=== PATIENT | female | born 1990 | race African-American/Black ===

== ENCOUNTER 2017-09-09 08:26 | Emergency (ER) | payer BC, MEDICAID, OTHER ==
[~2017-09-09] VITALS: Ht 160 cm; Wt 55.0 kg
[~2017-09-09 08:26] MED LIST: METR-1 PO
--- NOTE | 2017-09-09 08:51 | PD ---
HPI Chief Complaint: ENT Complaint Time Seen by Provider: 08:47 Travel History International Travel<30 days: No Contact w/Intl Traveler<30days: No Traveled to known affect area: No History of Present Illness HPI 26-year-old Afro-[place] female presents the emergency Department with sudden onset sore throat. Patient denies fever, chills, nausea, or vomiting. States it started yesterday but is much worse this morning. She is handling all secretions and able to swallow but with difficulty. She denies cough or shortness of breath. Pain is currently 8 out of 10. She has not taken anything for it this morning. Patient is since June and breast- feeding. She has no known drug allergies. [facility] Past Medical History Diminished Hearing: No ?: Not : 2 Para: 1 Ectopic : Yes Social History Alcohol Use: No (occ) Tobacco Use: Yes (marijuana occ) Substance Use: No Allergies-Medications (Allergen,Severity, Reaction): Coded Allergies: No Known Allergies (Unverified Adverse Reaction, Unknown, 09/09/17) Reported Meds & Prescriptions Reported Meds & Active Scripts Active Flagyl (Metronidazole) 500 Mg Tab 1 Tab PO TID Review of Systems Except as stated in HPI: all other systems reviewed are Neg General / Constitutional: No: Fever Eyes: No: Visual changes HENT: Positive: Sore Throat, No: Headaches, Vertigo, Lightheadedness, Rhinitis , Rhinorrhea, Congestion, Nosebleed, Neck Stiffness, Neck Pain, Dental Difficulties, Earache Cardiovascular: No: Chest Pain or Discomfort Respiratory: No: Cough, Shortness of Breath, Wheezing Gastrointestinal: No: Nausea, Vomiting, Diarrhea, Abdominal Pain Genitourinary: No: Dysuria Musculoskeletal: No: Pain Skin: No Rash Neurologic: No: Weakness Psychiatric: No: Depression Endocrine: No: Polydipsia Hematologic/Lymphatic: No: Easy Bruising Physical Exam Narrative GENERAL: Patient appears in no acute distress. SKIN: Warm and dry. Normal color. Normal turgor. HEAD: Atraumatic. Normocephalic. EYES: Pupils equal and round. No scleral icterus. No injection or drainage. ENT: No nasal bleeding or discharge. Mucous membranes pink and moist. TMs are clear bilaterally. Posterior pharynx shows generalized erythema with obvious viral cold sore to the right tonsillar pillar. No significant tonsillitis is noted. Uvula is midline. Patient is not hoarse. NECK: Trachea midline. Supple nontender without lymphadenopathy. CARDIOVASCULAR: Regular rate and rhythm. RESPIRATORY: No accessory muscle use. Clear to auscultation. Breath sounds equal bilaterally. GASTROINTESTINAL: Abdomen soft, non-tender, nondistended. Hepatic and splenic margins not palpable. MUSCULOSKELETAL: Extremities without clubbing, cyanosis, or edema. No obvious deformities. NEUROLOGICAL: Awake and alert. No obvious cranial nerve deficits. Motor grossly within normal limits. Five out of 5 muscle strength in the arms and legs. Normal speech. PSYCHIATRIC: Appropriate mood and affect; insight and judgment normal. Data Data Last Documented VS Vital Signs Date Time Temp Pulse Resp B/P (MAP) Pulse Ox O2 Delivery O2 Flow Rate FiO2 09/09/17 08:57 98.9 Orders Orders Group A Rapid Strep Screen (09/09/17 08:58) Acetaminophen (Tylenol) (09/09/17 09:00) Strep Culture (Group A) (09/09/17 09:05) Ed Discharge Order (09/09/17 09:44) MDM Medical Decision Making Medical Screen Exam Complete: Yes Emergency Medical Condition: Yes Differential Diagnosis Viral pharyngitis. Strep pharyngitis. Tonsillitis. Narrative Course Patient is medically stable at time of exam. Rapid strep was sent to the laboratory. Patient is given 650 mg acetaminophen by mouth. Rapid strep test is negative. Patient is felt to have viral pharyngitis. She should be treated symptomatically with Tylenol, ice chips, and saltwater gargles. Patient should follow with her primary care physician if symptoms do not improve or worsen. Patient can return to emergency Department with worsening symptoms as needed. Work note for today is given. Diagnosis Primary Impression: Acute viral pharyngitis Referrals: Primary Care Physician Patient Instructions: Pharyngitis (ED) Departure Forms: Work Release Enter return to work date: Sep 10, 2017 Additional Instructions: Rapid strep test is negative. Patient is felt to have viral pharyngitis. She should be treated symptomatically with Tylenol, ice chips, and saltwater gargles. Patient should follow with her primary care physician if symptoms do not improve or worsen. Patient can return to emergency Department with worsening symptoms as needed. Work note for today is given. Med/Other Pt SpecificInfo: No Meds Exist/No RX given Disposition: DISCHARGE HOME Condition: Stable Morales Infante Sep 09, 2017 08:51
[2017-09-09 08:57] VITALS: TEMP 98.9
[2017-09-09] MEDS ORDERED: ACETAMINOPHEN 325 MG TAB PO ONE (09:00)
[2017-09-09 10:09] VITALS: BP 112/78
== END 2017-09-09 10:10 | disposition home or self-care (01) ==
LOC: NEPD 08:26
DX: J02.8 Acute pharyngitis due to other specified organisms (principal); F12.90 Cannabis use, unspecified, uncomplicated
CPT/HCPCS: 87081; 87880; 99282

== ENCOUNTER 2018-01-25 17:04 | Emergency (ER) | payer OTHER ==
[~2018-01-25] VITALS: Ht 160 cm; Wt 49.9 kg
[2018-01-25 17:16] VITALS: BP 102/66; PULSE 66; RESP 16; TEMP 98.3; O2SAT 97
--- NOTE | 2018-01-25 17:37 | PD ---
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 Duration is been a few days. Last menstruation was 10 days ago and was normal. Patient went to urgent care center reports the workup was negative including Trichomonas and BV as well as GC chlamydia. She is not sure she might be . She did not check before ED arrival. CINTHYA Cabrales present during conversation. PFSH Past Medical History Diminished Hearing: No Tetanus Vaccination: > 5 Years Influenza Vaccination: No ?: Unknown LMP: LAST THURSDAY WAS LATE : 3 Para: 2 Miscarriage: 1 : 0 Ectopic : Yes Past Surgical History Section: Yes Social History Alcohol Use: No (occ) Tobacco Use: No Substance Use: Yes Allergies-Medications (Allergen,Severity, Reaction): Coded Allergies: No Known Allergies (Unverified Adverse Reaction, Unknown, 01/25/18) Reported Meds & Prescriptions Reported Meds & Active Scripts Active No Active Prescriptions or Reported Medications Review of Systems Except as stated in HPI: all other systems reviewed are Neg General / Constitutional: No: Fever Physical Exam Narrative GENERAL: 27 yo F, WNWD, no acute distress Vital Signs Date Time Temp Pulse Resp B/P (MAP) Pulse Ox O2 Delivery O2 Flow Rate FiO2 01/25/18 17:16 98.3 66 16 102/66 (78) 97 SKIN: Warm and dry. HEAD: Atraumatic. Normocephalic. EYES: Pupils equal and round. No scleral icterus. No injection or drainage. ENT: No nasal bleeding or discharge. Mucous membranes pink and moist. NECK: Trachea midline. No JVD. CARDIOVASCULAR: Regular rate and rhythm. RESPIRATORY: No accessory muscle use. Clear to auscultation. Breath sounds equal bilaterally. GASTROINTESTINAL: Abdomen soft, non-tender, nondistended. Hepatic and splenic margins not palpable. MUSCULOSKELETAL: Extremities without clubbing, cyanosis, or edema. No obvious deformities. NEUROLOGICAL: Awake and alert. No obvious cranial nerve deficits. Motor grossly within normal limits. Five out of 5 muscle strength in the arms and legs. Normal speech. PSYCHIATRIC: Appropriate mood and affect; insight and judgment normal. Data Data Last Documented VS Vital Signs Date Time Temp Pulse Resp B/P (MAP) Pulse Ox O2 Delivery O2 Flow Rate FiO2 01/25/18 18:15 63 16 112/61 (78) 100 Room Air 01/25/18 17:16 98.3 Orders Orders Beta Hcg (Quant/Titer) (01/25/18 17:33) Gc And Chlamydia Pcr (01/25/18 17:33) Wet Prep Profile (01/25/18 17:33) Urinalysis - C+S If Indicated (01/25/18 17:33) Labs Laboratory Tests Test 01/25/18 17:40 01/25/18 17:45 01/25/18 17:52 Urine Color YELLOW Urine Turbidity CLEAR Urine pH 7.0 Urine Specific [place] 1.020 Urine Protein NEG mg/dL Urine Glucose (UA) NEG mg/dL Urine Ketones NEG mg/dL Urine Occult Blood NEG Urine Nitrite NEG Urine Bilirubin NEG Urine Urobilinogen 0.2 MG/DL Urine Leukocyte Esterase NEG Urine RBC 0-3 /hpf Urine WBC 0-2 /hpf Urine Squamous Epithelial Cells 0-5 /hpf Urine Amorphous Sediment FEW Microscopic Urinalysis Comment CULT NOT INDICATED Human Chorionic Gonadotropin, Quant LESS THAN 1 MIU/ML Clue Cells (Wet Prep) PRESENT Vaginal Trichomonas (Wet Prep) NONE SEEN Vaginal Yeast (Wet Prep) NONE SEEN MDM Medical Decision Making Medical Screen Exam Complete: Yes Emergency Medical Condition: Yes Differential Diagnosis IUP, UTI, ectopic , ov torsion, appendicitis, TOA, cervicitis, BV, Trichomoniasis, ov cyst, hernia, mittelschmerz, pain from menstruation Narrative Course Patient has BV. Scripts as below. Upreg negative. Diagnosis Primary Impression: Bacterial vaginosis Referrals: Primary Care Physician Med/Other Pt SpecificInfo: Prescription(s) given, No Change to Meds Scripts Metronidazole (Flagyl) 500 Mg Tab 500 MG PO BID for Infection for 7 Days, #14 TAB 0 Refills Prov: Yonis Case MD 01/25/18 Disposition: 01 DISCHARGE HOME Condition: Stable Yonis Case MD January 25, 2018 17:37
[2018-01-25 18:01] LABS: BILIRUBIN, URINE NEG (NEG); BLOOD, URINE NEG (NEG); GLUCOSE,URINE NEG (NEG); KETONE, URINE NEG (NEG); NITRITE,URINE NEG (NEG); URINE COLOR YELLOW (YELLW/STRAW); URINE LEUKOCYTE ESTERASE NEG (NEG)
[2018-01-25 18:09] LABS: AMORPHOUS SEDIMENT, URINE FEW; RBC, URINE 0-3 /hpf (0-3); SQUAMOUS EPITHELIAL CELL URINE 0-5 /hpf (0-5); WBC, URINE 0-2 /hpf (0-5)
[2018-01-25 18:15] VITALS: BP 112/61; PULSE 63; RESP 16; O2SAT 100
[2018-01-25] MEDS ORDERED: METR-1 PO (18:40)
[2018-01-25] MEDS ORDERED: metroNIDAZOLE 500 MG TAB PO ONE (18:45)
[2018-01-25 19:15] VITALS: BP 118/78
== END 2018-01-25 19:20 | disposition home or self-care (01) ==
LOC: PHED 17:04
DX: N76.0 Acute vaginitis (principal); B96.89 Other specified bacterial agents as the cause of diseases classified elsewhere
CPT/HCPCS: 81001; 84702; 87210; 87491; 87591; 99283